=== PATIENT | female | born 1970 | race Hispanic/Latino ===

== ENCOUNTER 2018-01-13 20:01 | Emergency (ER) | payer BC ==
[2018-01-13 20:29] VITALS: BP 140/85
[2018-01-13] MEDS ORDERED: TYLENOL ONE (20:29)
[2018-01-13] MEDS ORDERED: TYLENOL PO ONE (20:33)
--- NOTE | 2018-01-14 00:14 | Emergency Department Report ---
Upper Extremity - HPI Chief Complaint: Extremity Injury, Upper Stated Complaint: INSECT BITE Time Seen by Provider: 01/14/18 00:02 Upper Extremity: Left Elbow (swelling and pain) Occurred When: Today Mechanism: Other (She think insect bite her ) Severity: moderate Symptoms: Yes Pain with Movement, Yes Limited Range of Movement, Yes Swelling, Yes Bruising/Ecchymosis, No Deformity, No Numbness, No Weakness, No Laceration or Abrasion Other History: This is a 47 y.o. white female that presents with swelling and pain to left elbow for 1 day. Patient states she was standing on garage cleaning leaves off and noticed pain and swelling to left elbow. States there are overgrown bushes in the back of her house and several bugs flying around. She didn't see a tick or insects to area. She complains of pain over the lateral olecranon area. States pain is 8/10 with touch and painful to extend left arm. Denies fever, numbness, tingling, deformity, arthralgia, or bulls eye rash. ED Review of Systems ROS: Stated complaint: INSECT BITE Other details as noted in HPI Constitutional: denies: chills, fever, malaise ENT: denies: ear pain, throat pain, dental pain, hearing loss, epistaxis, congestion Respiratory: denies: cough, shortness of breath, SOB with exertion, SOB at rest , wheezing Cardiovascular: denies: chest pain, palpitations Gastrointestinal: denies: abdominal pain, nausea, diarrhea, constipation, hematochezia Musculoskeletal: joint swelling (left elbow), myalgia (left elbow). denies: back pain, arthralgia Skin: other (redness and swelling to left elbow). denies: rash, lesions Neurological: denies: headache, weakness, numbness, paresthesias Psychiatric: denies: anxiety, depression ED Past Medical Hx - Past Medical History Previous Medical History?: No - Surgical History Past Surgical History?: No Additional Surgical History: ,. tubiligation, complication with tubes in ears - Social History Smoking Status: Current Every Day Smoker Substance Use Type: None - Medications Home Medications: Home Medications Medication Instructions Recorded Confirmed Last Taken Type Doxycycline Monohydrate 100 mg PO BID 7 Days #14 tablet 01/14/18 Unknown Rx methylPREDNISolone [Medrol] 4 mg PO DAILY #1 tab.ds.pk 01/14/18 Unknown Rx Upper Extremity Exam - Exam General: Vital signs noted. No distress. Alert and acting appropriately. Head and Torso: No HEENT Abnormality, No Neck Tenderness, No Chest/Lungs Abnormality, No Abdominal Tenderness, No Back Tenderness Shoulder Exam: Yes Normal Range of Motion in Shoulder, No Shoulder Tenderness, No Clavicle Tenderness, No Shoulder Deformity, No AC Joint Tenderness Arm Exam: No Arm/Humerus Tenderness, No Arm Deformity Elbow: Yes Elbow Tenderness (2 cm erythematous area, tender to palpation over olecranon, no swelling), Yes Normal Range of Motion in Elbow, No Elbow Deformity Forearm: No Forearm Tenderness, No Forearm Deformity, No Pain with Pronation, No Pain with Supination Wrist: Yes Normal ROM in Wrist, No Wrist Tenderness, No Wrist Deformity, No Snuffbox Tenderness, No Pain with Axial Thumb Compression Hand: Yes Normal ROM in Digit(s), No Hand Tenderness, No Hand Deformity, No Digit Tenderness, No Digit(s) Deformity, No Tendon Dysfunction CMS Exam: Yes Normal Distal Pulses, Yes Normal Capillary Refill, Yes Normal Distal Sensation, No Broken Skin ED Course Vital Signs 01/13/18 01/13/18 20:24 20:34 Temperature 98.1 F Pulse Rate 87 Respiratory 20 18 Rate Blood Pressure 140/85 O2 Sat by Pulse 98 Oximetry ED Medical Decision Making - Lab Data Result diagrams: 01/14/18 00:23 01/14/18 00:23 - Radiology Data Radiology results: report reviewed XR left elbow: No fracture, dislocation, or significant joint effusion. - Medical Decision Making This patient is a 47 y.o. female that presents with painful, swollen left elbow for 1 day. Patient is stable and examined by me. Obtained BMP, CBC, and Uric acid. H&H low, RDW elevated, possible anemia. Xray of left elbow obtained and normal. No acute signs of distress noted. Given prednisone 50 mg po, tylenol 650 mg po once in ER. Discussed plan to start prednisone taper and doxycycline 100 mg po bid x 7 days with patient for insect bite. Patient agrees to ED plan of care. Discharged home and follow up with PCP in 2-3 days. Critical care attestation.: If time is entered above; I have spent that time in minutes in the direct care of this critically ill patient, excluding procedure time. ED Disposition Clinical Impression: Elbow pain, left Insect bite Qualifiers: Encounter type: initial encounter Qualified Code(s): W57.XXXA - Bitten or stung by nonvenomous insect and other nonvenomous arthropods, initial encounter Disposition: TO HOME OR SELFCARE Is pt being admited?: No Does the pt Need Aspirin: No Condition: Stable Instructions: Insect Bite or Sting (ED) Additional Instructions: Use ice or heat to left elbow to decrease swelling. Take medication as prescribed. Return to ER if swelling don't improve or difficulty breathing after 2 days of medication. Prescriptions: Doxycycline Monohydrate 100 mg PO BID 7 Days #14 tablet methylPREDNISolone [Medrol] 4 mg PO DAILY #1 tab.ds.pk Referrals: [facility] [Outside] - 3-5 Days [facility] [Outside] - 3-5 Days [facility] [Outside] - 3-5 Days Time of Disposition: 02:17 Print Language: BHUTANESE
[2018-01-14 00:33] LABS: Mean Corpuscular HGB Conc 30 % (30-34); Platelet Count 668 K/mm3 (140-440); Red Blood Count 4.64 M/mm3 (3.65-5.03)
[2018-01-14 00:47] LABS: Alanine Aminotransferase 17 units/L (7-56); Albumin 3.8 g/dL (3.9-5); BUN/Creatinine Ratio 22; Blood Urea Nitrogen 11 mg/dL (7-17); Calcium 7.9 mg/dL (8.4-10.2); Hemolysis Index 2
[2018-01-14 01:42] LABS: Uric Acid 3.9 mg/dL (3.5-7.6)
[2018-01-14 01:46] LABS: Hematocrit 29.9 % (30.3-42.9); Hemoglobin 8.9 gm/dl (10.1-14.3); Mean Corpuscular Hemoglobin 19 pg (28-32); Mean Corpuscular Volume 64 fl (79-97); Red Cell Distribution Width 20.1 % (13.2-15.2)
--- NOTE | 2018-01-14 01:47 | XRay Report ---
FINAL REPORT EXAM: XR ELBOW 3+V LT HISTORY: Left elbow pain and swelling. TECHNIQUE: Frontal and lateral radiographs of the left elbow were obtained. No prior studies are available for comparison. FINDINGS: There is no fracture or dislocation. No other discrete osseous abnormality is seen. There is no significant joint effusion identified. If pain persists, follow-up radiographs and/or MRI is recommended. IMPRESSION: No fracture, dislocation, or significant joint effusion.
[2018-01-14] MEDS ORDERED: DELTASONE PO ONE (02:18)
== END 2018-01-14 02:28 | disposition home or self-care (01) ==
LOC: ED 20:01
DX: S50.362A Insect bite (nonvenomous) of left elbow, initial encounter (principal); F17.200 Nicotine dependence, unspecified, uncomplicated; Z98.51 Tubal ligation status; Z96.22 Myringotomy tube(s) status; W57.XXXA Bitten or stung by nonvenomous insect and other nonvenomous arthropods, initial encounter
CPT/HCPCS: 36415; 73080; 80053; 84550; 85027; 99284; J7512